=== PATIENT | female | born 1990 | race Asian ===

== ENCOUNTER → 2020-10-03 | Outpatient (CLI) | payer OTHER ==
[2020-10-03 09:35] LABS: BASO # 0.1 x10^3/uL (0.0-0.2); BASO % 1 % (0-3); EOS # 0.1 x10^3/uL (0.0-0.7); EOS % 1 % (0-3); HEMATOCRIT 44.2 % (36.0-47.0); HEMOGLOBIN 14.7 g/dL (12.0-15.5); LYMPH % 30 % (24-48); MEAN CORPUSCULAR HEMOGLOBIN 29 pg (25-35); MEAN CORPUSCULAR HGB CONC 33 g/dL (31-37); MEAN CORPUSCULAR VOLUME 86 fL (79-100); MONO # 0.7 x10^3/uL (0.0-1.1); MONO % 7 % (0-9); NEUT # 6.3 x10^3uL (1.8-7.7); NEUT % 62 % (31-73); PLATELET COUNT 245 x10^3/uL (140-400); RED BLOOD COUNT 5.11 x10^6/uL (3.50-5.40); RED CELL DISTRIBUTION WIDTH 12.7 % (11.5-14.5); WHITE BLOOD COUNT 10.2 x10^3/uL (4.0-11.0)
[2020-10-03 10:47] LABS: ALBUMIN 3.9 g/dL (3.4-5.0); ALBUMIN/GLOBULIN RATIO 0.9 (1.0-1.7); CALCIUM 8.7 mg/dL (8.5-10.1); CREATININE 0.9 mg/dL (0.6-1.0); GFR 72.6; POTASSIUM 4.2 mmol/L (3.5-5.1); TOTAL BILIRUBIN 0.4 mg/dL (0.2-1.0); TOTAL PROTEIN 8.1 g/dL (6.4-8.2)
[2020-10-03 22:15] LABS: LUTEINIZING HORMONE 5.8 mIU/mL (.); TESTOSTERONE TOTAL 49 ng/dL (8-48)
[2020-10-04 04:00] LABS: HEMOGLOBIN A1C 6.6 % (4.8-5.6)
[2020-10-04 12:10] LABS: INSULIN LEVEL 38.3 uIU/mL (2.6-24.9)
== END ==
LOC: LAB 08:34
PROVIDERS: ATTEND Nurse Practitioner Women's Health
DX: E28.2 Polycystic ovarian syndrome (principal)
CPT/HCPCS: 36415; 80053; 82627; 83001; 83002; 83036; 83525; 84403; 84443; 85025

== ENCOUNTER → 2021-06-09 | Outpatient (CLI) | payer OTHER ==
[2021-06-10 01:08] LABS: HEMOGLOBIN A1C 6.8 % (4.8-5.6)
[2021-06-10 13:10] LABS: INSULIN LEVEL 37.6 uIU/mL (2.6-24.9)
== END ==
LOC: LAB 08:46
PROVIDERS: ATTEND Obstetrics & Gynecology
DX: R73.03 Prediabetes (principal); R79.89 Other specified abnormal findings of blood chemistry
CPT/HCPCS: 36415; 83036; 83525; 84402; 84403

== ENCOUNTER → 2021-12-26 | Outpatient (CLI) | payer OTHER ==
[2021-12-26 09:14] LABS: BASO # 0.1 x10^3/uL (0.0-0.2); BASO % 1 % (0-3); EOS # 0.1 x10^3/uL (0.0-0.7); EOS % 1 % (0-3); HEMATOCRIT 43.1 % (36.0-47.0); HEMOGLOBIN 14.8 g/dL (12.0-15.5); LYMPH % 32 % (24-48); MEAN CORPUSCULAR HEMOGLOBIN 30 pg (25-35); MEAN CORPUSCULAR HGB CONC 34 g/dL (31-37); MEAN CORPUSCULAR VOLUME 86 fL (79-100); MONO # 0.5 x10^3/uL (0.0-1.1); MONO % 6 % (0-9); NEUT # 5.5 x10^3uL (1.8-7.7); NEUT % 60 % (31-73); PLATELET COUNT 248 x10^3/uL (140-400); RED BLOOD COUNT 5.02 x10^6/uL (3.50-5.40); RED CELL DISTRIBUTION WIDTH 12.8 % (11.5-14.5); WHITE BLOOD COUNT 9.2 x10^3/uL (4.0-11.0)
[2021-12-26 09:29] LABS: ALBUMIN 3.7 g/dL (3.4-5.0); ALBUMIN/GLOBULIN RATIO 0.8 (1.0-1.7); CALCIUM 8.7 mg/dL (8.5-10.1); CREATININE 0.7 mg/dL (0.6-1.0); GFR 96.4; TOTAL BILIRUBIN 0.4 mg/dL (0.2-1.0); TOTAL PROTEIN 8.2 g/dL (6.4-8.2)
[2021-12-26 23:07] LABS: LUTEINIZING HORMONE 8.8 mIU/mL (.); TESTOSTERONE TOTAL 34 ng/dL (8-60)
[2021-12-27 00:07] LABS: HEMOGLOBIN A1C 7.2 % (4.8-5.6)
[2021-12-27 18:07] LABS: INSULIN LEVEL 29.5 uIU/mL (2.6-24.9)
== END ==
LOC: LAB 08:14
PROVIDERS: ATTEND Obstetrics & Gynecology
DX: R79.89 Other specified abnormal findings of blood chemistry (principal); E28.2 Polycystic ovarian syndrome; R73.03 Prediabetes
CPT/HCPCS: 36415; 80053; 82627; 83001; 83002; 83036; 83525; 84403; 84443; 85025